=== PATIENT | female | born 1970 | race Caucasian/White ===

== ENCOUNTER 2020-01-19 16:20 | Observation (INO) | payer BC, SELFPAY ==
[2020-01-19] VITALS (39 sets, daily range): BP systolic 119–140; BP diastolic 64–89; PULSE 74–90; RESP 12–24; TEMP 36.4–36.6; O2SAT 95–99
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
[2020-01-19] MEDS: Normal Saline 1,000 ML 150 ML IV ×2 (16:42→22:56)
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
[2020-01-19] MEDS: HYDROmorphone 2 MG/ML VIAL 0.5 MG IVP (18:08)
[2020-01-19] MEDS: Ketorolac 30 MG/ML VIAL IVP (18:08)
--- NOTE | 2020-01-19 19:11 | NUR.NOTE ---
Nursing Note: Patient having difficulty grasping crutch use instructions, difficulty with being able to use crutches and to hop nonweight bearing to LLE. Pt able to take small miniscule hops but loses balance easily. Pt very concerned about how she will drive, transfer around at home, climb stairs (one flight to 2nd story: bedroom). Assisted to bathroom via w/c, pt unable to hold LLE up, so this scribe supported by holding ankle while mother pushed wheelchair. Pt transferred to toilet and encouraged to ring. strap maker with pt transferring back to w/c and pt had a syncopal episode, becoming white, diaphoretic. Transferred back to room with MD and onto stretcher. VSS. Allowing patient to rest with cool cloth on forehead.
[2020-01-19] MEDS: Ondansetron O.D.T. 4 MG TABEF PO (19:27)
[2020-01-19] MEDS: Lactated Ringers 1,000 ML 1000 ML IV (21:44)
[2020-01-19] MEDS: HYDROmorphone 2 MG/ML VIAL 1 MG IVP (21:44)
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
[2020-01-19 22:11] LABS: HCT 42.7 % (36.0-46.0); HGB 14.6 g/dL (12.0-15.5); Mean Corp. HGB Concentration 34.2 g/dL (32.0-36.0); Mean Corpuscular Hemoglobin 30.5 pg (27.0-33.0); Mean Corpuscular Volume 89.3 fL (80-95); Mean Platelet Volume 9.6 fL (8.0-11.0); Platelet Count 278 x1000/uL (130-400); RBC 4.78 m/cumm (4.00-5.20); White Blood Cell Count 14.58 k/cumm (4.4-10.8)
[2020-01-19 22:13] LABS: ALT 39 U/L (14-59); AST 27 U/L (15-37); Albumin 3.7 g/dL (3.4-5.0); Alkaline Phosphatase 107 U/L (46-116); Anion Gap 9.3 mmol/L (3-11); BUN 13 mg/dL (7-18); Bilirubin, Total 0.3 mg/dL (0.2-1.0); CO2 26.7 mmol/L (21.0-32.0); CREATININE 0.82 mg/dL (0.55-1.02); Calcium 8.5 mg/dL (8.5-10.1); Chloride 104 mmol/L (98-107); Glucose 131 mg/dL (74-106); Potassium 3.9 mmol/L (3.5-5.1); Sodium 140 mmol/L (136-145); Total Protein 6.9 g/dL (6.4-8.2)
[2020-01-19] MEDS: Ondansetron 4 MG/2 ML VIAL IVP (22:15)
[2020-01-19] MEDS: DULoxetine 30 MG CAP 60 MG PO (23:54)
[2020-01-19] MEDS: Heparin 5,000 UNITS/ML VIAL 5000 UNITS SC (23:54)
[2020-01-20] MEDS: Acetaminophen 325 MG TAB 650 MG PO ×2 (00:09→04:12)
[2020-01-20 04:15] VITALS: BP 133/85; PULSE 77; RESP 20; TEMP 36; O2SAT 100
[2020-01-20] MEDS: Normal Saline 1,000 ML 150 ML IV (04:30)
[2020-01-20] MEDS: Ibuprofen 600 MG TAB PO (06:08)
[2020-01-20] MEDS: Heparin 5,000 UNITS/ML VIAL 5000 UNITS SC ×2 (06:11→13:36)
[2020-01-20 06:49] LABS: HCT 39.9 % (36.0-46.0); HGB 13.5 g/dL (12.0-15.5); Mean Corp. HGB Concentration 33.8 g/dL (32.0-36.0); Mean Corpuscular Hemoglobin 30.5 pg (27.0-33.0); Mean Corpuscular Volume 90.3 fL (80-95); Mean Platelet Volume 9.6 fL (8.0-11.0); Platelet Count 264 x1000/uL (130-400); RBC 4.42 m/cumm (4.00-5.20); RBC Distribution Width 14.1 % (11.7-14.6); White Blood Cell Count 11.61 k/cumm (4.4-10.8)
[2020-01-20 07:01] LABS: ALT 34 U/L (14-59); AST 23 U/L (15-37); Albumin 3.2 g/dL (3.4-5.0); Alkaline Phosphatase 99 U/L (46-116); Anion Gap 9.3 mmol/L (3-11); BUN 10 mg/dL (7-18); Bilirubin, Total 0.5 mg/dL (0.2-1.0); CO2 25.7 mmol/L (21.0-32.0); CREATININE 0.71 mg/dL (0.55-1.02); Calcium 8.2 mg/dL (8.5-10.1); Chloride 106 mmol/L (98-107); Glucose 103 mg/dL (74-106); Potassium 3.5 mmol/L (3.5-5.1); Sodium 141 mmol/L (136-145)
[2020-01-20] MEDS: HYDROcodone 5/Acetaminophen 325 TAB PO ×2 (07:12→11:40)
[2020-01-20 07:50] VITALS: BP 141/84; PULSE 80; RESP 17; TEMP 37.1; O2SAT 97
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
--- NOTE | 2020-01-20 09:43 | PDOC.CMIN ---
- If Service Date Differs Date of service: 01/20/20 Time of Service: 09:43 Care Management Initial Assess REASON FOR HOSPITALIZATION:: closed fracture of left tibial plateau PAST MEDICAL HISTORY/PAST SURGICAL HISTORY:: Medical History (Updated 01/20/20 @ 07:09 by London Kent). Depression (Chronic). Surgical History (Updated 01/20/20 @ 07:03 by London Kent). Cyst of Bartholin's gland (Acute). Patient states this was stented. S/P bilateral breast reduction (Acute). With implants PREVIOUS FUNCTIONAL STATUS/SOCIAL/FAMILY SUPPORTS:: Whit lives in a single family home in [place] with her Brad and their children. Nisha is independent at baseline. CURRENT FUNCTIONAL STATUS:: Nisha was lying in bed talking with her mother and daughter when CM came to visit. Nisha stated that she was either going to be transferred to [facility] or be discharged. After converstaions with Nisha and her , it was determined that she would be discharged home with outpatient follow up with Dr. Jacobson, who is an orthopedic surgeon from the area where they live. ADVANCE DIRECTIVES:: None on file Has patient been provided with information about the portal?: No Did the patient sign up for the portal?: No CODE STATUS:: Full Code INSURANCE COVERAGE / FINANCIAL ISSUES:: BC BS CURRENT HOME/COMMUNITY SERVICES/EQUIPMENT:: crutches PRIMARY CARE PHYSICIAN:: none in the area POTENTIAL DISCHARGE NEEDS:: Follow up with orthopedic surgeon and discharge plan of care PATIENT/FAMILY EDUCATION NEEDS:: Discharge plan, limitations, folow up plan, Ask Me Three. TRANSPORTATION:: via private vehicle with family PLAN:: Nisha will be discharged home wiht no new services. She will follow up with Dr. Jacobson, an orthopedic surgeon at [facility]. She will transport via private vehicle with her family.
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
[2020-01-20 11:39] VITALS: BP 125/83; PULSE 91; RESP 17; TEMP 37.3; O2SAT 97
--- NOTE | 2020-01-20 12:15 | DI.CT_ITS ---
EXAM: CT LOWER EXTREMITY LT WO CLINICAL HISTORY: patella fracture, swelling TECHNIQUE: Noncontrast from the distal femoral metaphysis through the proximal diaphyses of the tibi a and fibula. COMPARISON: XR KNEE LT 2V AP,LAT from 01/19/2020 FINDINGS: Again noted is a comminuted fracture involving the proximal tibia. There is comminution of the later al tibial plateau. There are fracture lines extending in the sagittal and coronal planes through the lateral aspect of the proximal tibial metaphysis. The fracture extends from the level of the tibial spines. There is a few millimeters separation at the articular surface and a few millimeters of dep ression of the lateral tibial plateau. A fracture line extends posteriorly through the medial tibial plateau from the tibial spine. The distal femur and patella appear intact. There is a nondisplaced f racture the proximal fibula. IMPRESSION: Comminuted proximal tibial fracture involving both tibial plateaus. There is mild depression of the lateral tibial plateau fracture. Nondisplaced proximal fibular fracture.
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
--- NOTE | 2020-01-20 14:50 | CHAPLAIN ---
Whit was resting in bed when I visited. Her mom and daughter were with her. She is from the [facility] and expects to be discharged later today.
--- NOTE | 2020-01-20 15:29 | PDOC.CMDIS ---
- If Service Date Differs Date of service: 01/20/20 Time of Service: 15:29 LACE Index Scoring Tool - Questions: Length of Stay (in days): 1 Acuity (Admit via E.D.?): Yes E.D. Visits: 1 - Answers: Total Score: 5 Risk of Readmission: Low Risk Care Management Discharge Reason for Hospitalization: closed fracture of left tibial plateau Discharge Plan: Nisha will be discharged home wiht no new services. She will follow up with Dr. Jacobson, an orthopedic surgeon at [facility]. She will transport via private vehicle with her family. Patient/Family Education Needs: Follow up with orthopedic surgeon and discharge plan of care
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
== END 2020-01-20 15:08 | disposition home or self-care (01) ==
LOC: ER 22:01 → MS 22:19
PROVIDERS: Admitting Provider Family Medicine; Emergency Provider Student in an Organized Health Care Education/Training Program; Visit Provider Family Medicine
DX: S82.142A Displaced bicondylar fracture of left tibia, initial encounter for closed fracture (principal); S82.832A Other fracture of upper and lower end of left fibula, initial encounter for closed fracture; V86.52XA Driver of snowmobile injured in nontraffic accident, initial encounter; M25.562 Pain in left knee; G89.11 Acute pain due to trauma; F32.9 Major depressive disorder, single episode, unspecified
CPT/HCPCS: 29505; 36415; 80053; 85027; 96361; 96374; 96375; 96376; 97162; 99219; 99252; 99285; 73560; 73700; 99284; E0114; J1644; J1885; J2405; L1830